=== PATIENT | male | born 1965 | race Caucasian/White ===

== ENCOUNTER → 2016-03-17 | Outpatient (CLI) | payer BC ==
[2016-03-17 10:13] LABS: FREE T4 0.72 NG/DL (0.76-1.46)
== END ==
LOC: M LAB 08:37
PROVIDERS: ATTEND Family Medicine Adult Medicine
DX: R53.82 Chronic fatigue, unspecified (principal)

== ENCOUNTER → 2016-05-10 | Outpatient (CLI) | payer BC ==
[2016-05-10 15:06] LABS: BASO # 0.1 K/mm3 (0.0-0.2); BASO % 0.9 % (0.0-1.0); EOS # 0.4 K/mm3 (0.0-0.50); EOS % 5.2 % (0.0-3.0); LARGE UNSTAINED CELL # 0.2 K/mm3 (0.0-0.4); LYMPH # 2.6 K/mm3 (1.5-4.5); LYMPH % 34.3 % (24.0-44.0); MEAN CORPUSCULAR HEMOGLOBIN 29.6 pg (27.0-33.0); MEAN CORPUSCULAR HGB CONC 34.5 g/dl (32.0-36.5); MEAN CORPUSCULAR VOLUME 85.9 fl (80.0-96.0); MONO # 0.5 K/mm3 (0.0-0.8); MONO % 6.5 % (0.0-5.0); NEUTROPHILS # 3.7 K/mm3 (1.8-7.7); NEUTROPHILS % 51.1 % (36.0-66.0); PLATELET COUNT, AUTOMATED 220 k/mm3 (150-450); RED CELL DISTRIBUTION WIDTH 12.6 % (11.5-14.5); WHITE BLOOD COUNT 7.2 K/mm3 (4.0-10.0)
[2016-05-10 15:40] LABS: ALBUMIN 3.8 GM/DL (3.2-5.2); ALKALINE PHOSPHATASE 80 U/L (45-117); ALT/SGPT 23 U/L (12-78); ANION GAP 6 MEQ/L (8-16); AST/SGOT 21 U/L (15-37); BILIRUBIN,TOTAL 0.6 MG/DL (0.2-1.0); BLOOD UREA NITROGEN 15 MG/DL (7-18); CALCIUM LEVEL 9.2 MG/DL (8.5-10.1); CARBON DIOXIDE LEVEL 29 MEQ/L (21-32); CHLORIDE LEVEL 105 MEQ/L (98-107); CHOLESTEROL LEVEL 233 MG/DL (<200); FREE T4 0.66 NG/DL (0.76-1.46); GLOMERULAR FILTRATION RATE > 60.0 (>60); GLUCOSE, FASTING 89 MG/DL (70-105); POTASSIUM SERUM 4.7 MEQ/L (3.5-5.1); SODIUM LEVEL 140 MEQ/L (136-145); TOTAL PROTEIN 7.6 GM/DL (6.4-8.2); TRIGLYCERIDES LEVEL 121 MG/DL (<150)
[2016-05-12 10:30] LABS: VITAMIN B12 LEVEL 489 PG/ML (247-911)
== END ==
LOC: M LAB 14:22
PROVIDERS: ATTEND Family Medicine Adult Medicine
DX: R53.81 Other malaise (principal); E55.9 Vitamin D deficiency, unspecified

== ENCOUNTER → 2016-05-13 | Outpatient (CLI) | payer BC ==
--- NOTE | 2016-05-13 18:40 | REP ---
Clinical: Pain. Technique: Real time rivers scale and color Doppler evaluation using linear high frequency transducer. Findings: The right testicle is normal in contour, size, echogenicity and vascularity without intratesticular mass lesion, infectious/inflammatory process, or torsion. The right epididymis has been replaced by innumerable large cysts which may reflect actual cysts and/or spermatoceles and measure up to approximately 15 mm diameter. No right hydrocele. The right testicle measures 3.7 x 1.7 x 2.2 cm. The left testicle is normal in size and vascularity but demonstrates diffuse heterogeneity without discrete focal mass lesion. No evidence for acute torsion, infectious/inflammatory process noted. The left epididymis appears normal. No left hydrocele. Left testicle measures 4.0 x 1.5 x 2.4 cm. Impression: 1. The right epididymis has been replaced by large cysts versus spermatoceles which measure up to 15 mm diameter. The right testicle is normal in appearance. 2. The left testicle appears heterogeneous without discrete lesion. This is a nonspecific finding and there are no prior examinations for comparison. While differential may include infiltrating lesion, findings may also be related to prior insult. The left epididymis is normal. Signed by Tahir Ruiz MD 05/13/2016 06:32 P
== END ==
LOC: M RAD 17:31
PROVIDERS: ATTEND Family Medicine Adult Medicine
DX: N50.819 Testicular pain, unspecified (principal); N50.3 Cyst of epididymis

== ENCOUNTER → 2016-08-20 | Outpatient (CLI) | payer BC ==
[~2016-08-20] MED LIST: ADVI200T PO; CIPR-249 PO; FLOM5CAP PO; PERC5TAB12 PO; REGL10TA6 PO; VITA200015 PO; ZYRT10TA2 PO
[2016-08-24 14:14] LABS: SEX HORMONE BINDING GLOBULIN 72.3 nmol/L (16.5-55.9); TESTOSTERONE %FREE+WEAKLY BOUN 9.7 % (9.0-46.0); TESTOSTERONE FREE+WEAKLY BOUND 55.5 ng/dL (40.0-250.0)
== END ==
LOC: M LAB 06:30
PROVIDERS: ATTEND Student in an Organized Health Care Education/Training Program
DX: N50.819 Testicular pain, unspecified (principal)

== ENCOUNTER 2016-12-08 09:54 | Emergency (ER) | payer BC ==
[~2016-12-08] VITALS: Ht 160 cm; Wt 94.5 kg
[2016-12-08] MEDS ORDERED: VITA200015 PO (10:10)
[2016-12-08] MEDS ORDERED: ADVI200T PO (10:10)
[2016-12-08] MEDS ORDERED: ZYRT10TA2 PO (10:10)
[2016-12-08] MEDS ORDERED: KETOROLAC 60 MG/2 ML VIAL (J1885) IM ONE (10:45)
--- NOTE | 2016-12-08 11:43 | REP ---
CT abdomen and pelvis without IV or oral contrast: Renal stone protocol. History: Left flank pain. Comparison study: April 10, 2010. CT findings: Digital preliminary drapery maker radiograph demonstrates an unremarkable bowel gas pattern. There is a levoconvex curve in the lumbar spine. The lung bases are clear on axial CT slices. There is a 2.1 cm fairly well circumscribed low density lesion in the posterior segment right lobe of the liver which may be a cyst or perhaps hemangioma. A smaller low density area is visible in this location in retrospect on the [address] study implying a benign lesion. There is mild diffuse fatty infiltration of the liver. No other focal liver lesion is seen. The spleen is unremarkable. No adrenal lesion is seen on either side. Gallbladder and pancreas are unremarkable. There are bilateral intrarenal calculi. There is a 2.5 mm intrarenal calculus in the midpole of the right kidney. A tiny 2 mm calculus is seen in the lower pole of the right kidney. No right-sided hydronephrosis is seen. There are two separate intrarenal calculi in the left kidney. In the mid pole there is a 3 mm calculus and in the lower pole intrarenal collecting system of the left kidney, there is a 4 mm intrarenal calculus. There is moderate left-sided hydronephrosis. There is mild periureteral stranding. The left ureter contains a obstructive 3 mm calculus in the mid ureteral segment at the level of the L4 vertebral body. No other ureteral calculus is seen. No bladder calculus is observed. Prostate, seminal vesicles and urinary bladder are unremarkable. Small and large intestinal bowel loops are unremarkable in the abdomen and pelvis. No abdominal wall defect is seen. A normal appendix is seen. There is lipomatous change of the spermatic cord on the right noted incidentally. No bony destructive lesion is seen. There are some degenerative spondylosis changes in the spine. Impression: 1. Moderate left-sided hydronephrosis due to a 3 mm left mid ureteral obstructing calculus. 2. There are intrarenal calculi bilaterally, two separate calculi seen in each kidney. 3. 2.0 cm low density lesion in the posterior segment of the right lobe of the liver consistent with cyst or hemangioma. This is larger than a small low density area seen in 2011 at this site. Signed by Yvan Gordon MD 12/08/2016 02:18 P
[2016-12-08] MEDS ORDERED: PERC5TAB12 PO ×2 (12:38→12:52)
[2016-12-08] MEDS ORDERED: FLOM5CAP PO ×2 (12:38→12:52)
[2016-12-08] MEDS ORDERED: CIPR-249 PO ×2 (12:38→12:52)
[2016-12-08 12:54] VITALS: BP 151/78
[2016-12-22] MEDS ORDERED: TYLE325T5 PO (08:22)
[2016-12-22] MEDS ORDERED: MULT1TAB10 PO (08:22)
[2016-12-22] MEDS ORDERED: VITA1CAP40 PO (08:22)
== END 2016-12-08 12:54 | disposition home or self-care (01) ==
LOC: M ED 09:54
DX: R10.9 Unspecified abdominal pain (principal)
CPT/HCPCS: 74176; 81001; 87086; 96372; 99283; J1885

== ENCOUNTER 2016-12-11 00:52 | Emergency (ER) | payer BC ==
[~2016-12-11] VITALS: Ht 160 cm; Wt 93.2 kg
[~2016-12-11 00:52] MED LIST changes: -REGL10TA6 PO
[2016-12-11 00:58] VITALS: BP 161/85
[2016-12-11] MEDS ORDERED: NS 1,000 ML IV ONE (01:30)
[2016-12-11] MEDS ORDERED: METOCLOPRAMIDE INJ 10MG/2ML VIAL (J2765) IV ONE (01:30)
[2016-12-11] MEDS ORDERED: REGL10TA6 PO (04:04)
[2016-12-22] MEDS ORDERED: TYLE325T5 PO (08:22)
[2016-12-22] MEDS ORDERED: VITA1CAP40 PO (08:22)
[2016-12-22] MEDS ORDERED: MULT1TAB10 PO (08:22)
== END 2016-12-11 04:15 | disposition home or self-care (01) ==
LOC: M ED 00:52
DX: R11.10 Vomiting, unspecified (principal)
CPT/HCPCS: 96374; 99283; J2765

== ENCOUNTER 2016-12-12 12:36 | Day surgery (SDC) | payer BC ==
[~2016-12-12] VITALS: Ht 167.6 cm; Wt 93.0 kg
[~2016-12-12 12:36] MED LIST changes: +REGL10TA6 PO
[2016-12-12] MEDS ORDERED: MORPHINE 4 MG/ML 1ML SYRINGE IV ONE (14:15)
[2016-12-12] MEDS ORDERED: NS 1,000 ML IV ONE (14:15)
[2016-12-12] MEDS ORDERED: ONDANSETRON 4MG/2ML VIAL (J2405) IV ONE (14:15)
[2016-12-12 15:30] LABS: BASO # 0.1 10^3/uL (0.0-0.2); BASO % 0.3 % (0.0-1.0); EOS # 0.1 10^3/uL (0.0-0.50); EOS % 0.4 % (0.0-3.0); IMMATURE GRANULOCYTE % 0.4 % (0-0); LYMPH # 0.9 10^3/uL (1.5-4.5); LYMPH % 5.5 % (24.0-44.0); MEAN CORPUSCULAR HGB CONC 34.9 g/dl (32.0-36.5); MONO # 1.1 10^3/uL (0.0-0.8); MONO % 6.6 % (0.0-5.0); NEUTROPHILS # 14.2 10^3/uL (1.8-7.7); NEUTROPHILS % 86.8 % (36.0-66.0); PLATELET COUNT, AUTOMATED 207 10^3/uL (150-450); RED CELL DISTRIBUTION WIDTH 12.2 % (11.5-14.5); WHITE BLOOD COUNT 16.4 10^3/uL (4.0-10.0)
[2016-12-12 15:51] LABS: ANION GAP 8 MEQ/L (8-16); BLOOD UREA NITROGEN 12 MG/DL (7-18); CALCIUM LEVEL 9.3 MG/DL (8.5-10.1); CARBON DIOXIDE LEVEL 26 MEQ/L (21-32); CHLORIDE LEVEL 104 MEQ/L (98-107); CREATININE FOR GFR 1.27 MG/DL (0.70-1.30); GLOMERULAR FILTRATION RATE > 60.0 (>60); GLUCOSE, FASTING 89 MG/DL (70-105); POTASSIUM SERUM 4.3 MEQ/L (3.5-5.1); SODIUM LEVEL 138 MEQ/L (136-145)
[2016-12-12] MEDS ORDERED: CONRAY-60 60% 50ML VIAL (Q9961) As Ordered ONE (17:32)
[2016-12-12] MEDS ORDERED: CIPROFLOXACIN/D5W 400 MG/200 ML BAG (J0744) As Ordered ONE (17:59)
[2016-12-12] MEDS ORDERED: PROPOFOL 200 MG/20 ML VIAL As Ordered ONE (18:11)
[2016-12-12] MEDS ORDERED: MIDAZOLAM INJ 2 MG/2 ML VIAL (J2250) As Ordered ONE (18:11)
[2016-12-12] MEDS ORDERED: fentaNYL 100 MCG/2 ML INJECTION (J3010) As Ordered ONE (18:11)
[2016-12-12] MEDS ORDERED: CIPROFLOXACIN/D5W 400 MG/200 ML BAG (J0744) IV ONE (18:24)
[2016-12-12] MEDS ORDERED: KETOROLAC 30 MG/ML VIAL (J1885) IV PRN (18:45)
[2016-12-12] MEDS ORDERED: LR 1,000 ML IV SCH ×2 (18:45)
[2016-12-12] MEDS ORDERED: fentaNYL 100 MCG/2 ML INJECTION (J3010) IV PRN (18:45)
[2016-12-12] MEDS ORDERED: ONDANSETRON 4MG/2ML VIAL (J2405) IV PRN ×2 (18:45)
[2016-12-12 19:15] VITALS: BP 145/82
[2016-12-12 19:45] VITALS: BP 133/73
[2016-12-12 20:45] VITALS: BP 139/77
[2016-12-12 21:45] VITALS: BP 142/79
[2016-12-12 22:45] VITALS: BP 139/86
--- NOTE | 2016-12-13 03:28 | CR ---
DATE OF CONSULTATION: 12/12/2016 This 51-year-old male was evaluated on consultation as requested by the emergency department at [facility] on 12/12/2016 for left renal colic. He presented 48 hours previously to said emergency department with the same condition, and was discharged home with Flomax and oral analgesia. He re-presents today with a persistent 48-hour history of left renal colic, nausea, and vomiting. Prior to presentation, there is no history of voiding symptoms, gross hematuria, urinary tract infection, stone passage or constitutional symptoms. He has a 22-year history of recurrent nephrolithiasis (spontaneous passage). PAST MEDICAL HISTORY: Significant for: 1. Bilateral orchiopexy. 2. Left varicose vein stripping. REVIEW OF SYSTEMS: Negative for diabetes, hypertension, cardiac or pulmonary pathology, thyroid problems, headaches, epilepsy, CVA, glaucoma, peptic ulcer disease, cholelithiasis, or blood-borne diseases. MEDICATIONS: He is on no medications. ALLERGIES: He has no allergies to medications. SOCIAL HISTORY: He is and has zero children. He is a nonsmoker who consumes alcohol occasionally. FAMILY HISTORY: Significant for diabetes mellitus and cerebrovascular accident on the paternal side, diabetes mellitus in a sibling, and lung cancer on the maternal side. PHYSICAL EXAMINATION: General examination revealed a comfortable individual. His heart rate was 85, respiratory rate 20, blood pressure was 150/86, and temperature was 98.3 degrees Fahrenheit. Palpation of head and neck failed to reveal the presence of lymphadenopathy. Auscultation chest was clear. Normal breath sounds. Examination of the back and abdomen was benign. Urinalysis (12/12/2016) demonstrated 3+ red blood cells with a pH of 6.0. Nitrites and leukocytes were negative. Serum hematologic and bowel chemical indices determination (12/12/2016) demonstrated a hemoglobin at 15.7, leukocyte count of 16.4 and a creatinine of 1.27. Computed tomography of the abdomen and pelvis without intravenous contrast (12/12/2016) demonstrated left moderate hydroureteronephrosis with a left distal ureter 4 mm calculus and bilateral, less than 4 mm, kidney calculi. ASSESSMENT: 1. Left distal ureter calculus. 2. Bilateral kidney calculi. 3. Left moderate hydroureteronephrosis. 4. History of bilateral orchiopexy. 5. History of left varicose vein stripping of the lower extremity. PLAN: The above findings were discussed with the patient and the nursing staff. Following nothing by mouth status (1030 hours), cystoscopy, left retrograde ureteropyelography and double J stent insertion will be performed. Following this procedure, the patient may be discharged home with instructions to strain his urine. Exit prescription (ciprofloxacin) will be provided. He will followup with urology at [facility] in 1 week with a KUB radiograph. The temporary nature of the double J stent was emphasized to the patient. Should you require additional information, please do not hesitate to contact me. Thanking you for the confidence of your referral.
--- NOTE | 2016-12-13 07:25 | REP ---
CT ABDOMEN AND PELVIS WITHOUT IV OR ORAL CONTRAST: HISTORY: Left flank pain. History of kidney stones. Comparison CT study December 08, 2016. This recent prior study was read as showing moderate left-sided hydronephrosis due to a 3 mm left mid ureteral stone. CT FINDINGS: Police Chief view shows an unremarkable bowel gas pattern. The lung bases remain clear. A low-density right hepatic lobe liver lesion is again seen unchanged. There is moderate left-sided hydronephrosis and mild left-sided hydroureter. The previously noted 3 mm calculus is seen in the distal ureter several centimeters above the ureterovesical junction. On today's CT images the calcification measures 4 mm in greatest diameter. No bladder calculus is seen. No other ureteral calculus is observed. There are two 3-4 mm intrarenal calculi remaining in the left kidney and there is one intrarenal calculus in the right kidney. No other abnormality. IMPRESSION: Mild to moderate left-sided hydronephrosis slightly more prominent. 4 mm calculus seen in the distal ureter several centimeters above the ureterovesical junction on the left side today. Two intrarenal calculi remain in the left kidney and there is one intrarenal calculus in the right kidney. No right-sided hydronephrosis seen. Signed by Yvan Gordon MD 12/13/2016 09:19 A
--- NOTE | 2016-12-13 07:27 | REP ---
RETROGRADE URETEROGRAM: Six views. HISTORY: Left ureteral stent. 15 seconds of fluoroscopy time is reported. FINDINGS: A sequence of six last image hold fluoroscopic spot radiographs of the abdomen document left ureteral cannulation, contrast injection, and double pigtail ureteral stent placement. Signed by Yvan Gordon MD 12/13/2016 09:19 A
--- NOTE | 2016-12-13 13:43 | RO ---
DATE OF PROCEDURE: 12/12/2016 PREPROCEDURE DIAGNOSES: 1. Distal ureteral calculus. 2. Bilateral kidney calculi. POSTPROCEDURE DIAGNOSES: 1. Distal ureteral calculus. 2. Bilateral kidney calculi. 3. Left pyuria. PROCEDURE: Cystoscopy, left retrograde ureteropyelography, #6-Malagasy Prescott JJ stent insertion, fluoroscopy. COMPLICATIONS: None. SURGEON: Aniceto Bonilla MD SENIOR UX DEVELOPER: ANESTHESIA: MAC. ESTIMATED BLOOD LOSS: 0 mL. PROCEDURE: In the lithotomy position, the patient was prepped and draped in the usual fashion. Plain fluoroscopy of the upper urinary tract failed to confirm the presence of a radiopaque calculus. A #21-Malagasy rigid Olympus cystoscope was advanced into the urinary bladder under direct vision. A urine specimen for culture and sensitivity was obtained. Pancystoscopy revealed normal ureteral orifices bilaterally and normal urothelium. There was no evidence of tumor, active bleeding or urolithiasis. A bilobe prostate was present. The urethral was normal. A #5-Malagasy open ended ureteral catheter was used to intubate the left ureteric orifice. Following intubation of the left ureteric orifice, pyuria was noted to drain from the #5-Malagasy open ended ureteral catheter. This urine was collected and sent for culture and sensitivity (separate second specimen). Gentle retrograde ureteropyelograph confirming normal caliber ureter and mild hydronephrosis. A distal ureter filling defect was noted. The retrograde was performed gently to minimize the risk of pyelovenous backflow. Under fluoroscopy, a 0.035 Glidewire was advanced up into the left renal pelvis under fluoroscopy. The #5-Malagasy open ended ureteral catheter was removed and a #6-Malagasy Prescott JJ stent was advanced up into the left renal pelvis under fluoroscopy and direct vision. Its position was confirmed. Prior to removal of the instruments, the bladder was drained. At the conclusion of the procedure, sponge and instrument counts were correct. Estimated blood loss for the procedure was 0 mL. In the recovery room, the patient was alert and stable. DISPOSITION: Discharge home. Exit prescription ( ciprofloxacin) provided. KUB radiograph in the office with urology at [facility] in 1 week. The temporary nature of the JJ stent was emphasized to the patient's spouse (Radha Armstrong).
[2016-12-22] MEDS ORDERED: MULT1TAB10 PO (08:22)
[2016-12-22] MEDS ORDERED: VITA1CAP40 PO (08:22)
[2016-12-22] MEDS ORDERED: TYLE325T5 PO (08:22)
== END 2016-12-12 22:45 | disposition home or self-care (01) ==
LOC: M ED 12:36 → M OROP 17:35 → M PED 22:18 → M OROP 22:45
PROVIDERS: ATTEND Urology
DX: N20.2 Calculus of kidney with calculus of ureter (principal); N39.0 Urinary tract infection, site not specified; N13.30 Unspecified hydronephrosis
CPT/HCPCS: 52332; 74176; 74420; 80048; 81001; 85025; 87086; 96365; 96374; 96375; 99284; C1769; C2617; J0744; J2250; J2405; J3010; Q9961

== ENCOUNTER 2016-12-27 05:56 | Day surgery (SDC) | payer BC ==
[~2016-12-27] VITALS: Ht 160 cm; Wt 91.2 kg
[~2016-12-27 05:56] MED LIST changes: +MULT1TAB10 PO; +TYLE325T5 PO; +VITA1CAP40 PO
[2016-12-27] MEDS ORDERED: LR 1,000 ML IV SCH ×2 (06:15→09:00)
[2016-12-27] MEDS ORDERED: PROPOFOL 200 MG/20 ML VIAL As Ordered ONE (07:43)
[2016-12-27] MEDS ORDERED: LIDOCAINE 2% INJ 100 MG/5 ML SDV (FOR ANES.) As Ordered ONE (07:43)
[2016-12-27] MEDS ORDERED: MIDAZOLAM INJ 2 MG/2 ML VIAL (J2250) As Ordered ONE (07:43)
[2016-12-27] MEDS ORDERED: fentaNYL 100 MCG/2 ML INJECTION (J3010) As Ordered ONE ×2 (07:43→07:56)
[2016-12-27] MEDS ORDERED: METOCLOPRAMIDE INJ 10MG/2ML VIAL (J2765) As Ordered ONE (07:44)
[2016-12-27] MEDS ORDERED: ONDANSETRON 4MG/2ML VIAL (J2405) As Ordered ONE (07:44)
--- NOTE | 2016-12-27 08:39 | REP ---
Clinical: Obstructive left ureteral stone. Technique: Retrograde pyelogram with intraoperative fluoroscopic imaging. Findings: Multiple intraoperative fluoroscopic images demonstrate mild left-sided hydroureter nephrosis with subsequently placed left ureteral stent in satisfactory position. Total fluoroscopic time 35 seconds. Impression: Mild left hydroureteronephrosis. Left ureteral stent in satisfactory position. Signed by Tahir Ruiz MD 12/27/2016 08:30 A
[2016-12-27] MEDS ORDERED: PERCOCET 5MG/325MG TAB PO PRN (09:00)
[2016-12-27] MEDS ORDERED: METOCLOPRAMIDE INJ 10MG/2ML VIAL (J2765) IV PRN (09:00)
[2016-12-27] MEDS ORDERED: ONDANSETRON 4MG/2ML VIAL (J2405) IV PRN (09:00)
[2016-12-27] MEDS ORDERED: NORCO, ANEXSIA 5/325MG TABLET (HYDROcodone/ACETAMINOPHEN) PO PRN ×2 (09:00)
[2016-12-27] MEDS ORDERED: MEPERIDINE INJ 25 MG/ML VIAL (J2175) IV PRN (09:00)
[2016-12-27] MEDS ORDERED: fentaNYL 100 MCG/2 ML INJECTION (J3010) IV PRN (09:00)
--- NOTE | 2016-12-27 09:09 | RO ---
DATE OF PROCEDURE: 12/27/2016 PREPROCEDURE DIAGNOSIS: Left kidney and ureteral stones. POSTPROCEDURE DIAGNOSIS: Left kidney and ureteral stones. PROCEDURE: Cystoscopy, left ureteroscopy with basket extraction of stones, left retrograde pyelogram with intraoperative interpretation of images, left ureteral stent exchange. SURGEON: Dr. Hudson Rebollar AUTOMOBILES SALESPERSON: None. ANESTHESIA: General. OPERATIVE INDICATIONS: This is a 51-year-old male who presented to the hospital two weeks ago for an obstructing 5 mm distal left ureteral stone. With CAT scan he was also noted to have two non obstructing 4 mm left kidney stones. He had a left ureteral stent placed at that time. He was brought to the operating room today for removal of the stones. DESCRIPTION OF PROCEDURE: The patient was brought to the operating room where general anesthesia was induced. Prophylactic antibiotics were infused. He was then placed in dorsal lithotomy position and prepped and draped in the usual sterile fashion. A rigid cystoscope was then inserted into the urethral meatus and advanced to the bladder. Once within the bladder, a previously placed stent was seen. The stent was then withdrawn until the distal end was seen protruding from the urethral meatus. I then advanced a guidewire up the left collecting system through the stent. The stent was then removed leaving the wire in place. The wire was then secured to the drape to serve as a safety wire. I then went up the left collecting system with a short semirigid ureteroscope and within the distal left ureter the 5 mm stone was seen. The stone was then grasped with a basket and withdrawn. At this point, the wire was utilized to advance a ureteral access sheath up into the left collecting system. I then went up the access sheath with a flexible ureteroscope and within the left kidney the two 4 mm stones were seen. Both stones were removed with a basket. I examined the remainder of the kidney and the only other stones were seen were all less than 2 mm in size. At this point, a retrograde pyelogram was performed and it was notable for mild to moderate left hydronephrosis with no extravastion. I then withdrew the ureteral access sheath along with the ureteroscope and no additional stones were seen within the ureter. I then utilized the previously placed wire to advance a 6 Persian x 22-32 cm JJ ureteral stent up into the left collecting system. The wire was then removed and there were adequate curls of the stent in the left renal pelvis and in the bladder. The bladder was then emptied of all fluid and this marked the conclusion of the procedure. The patient was then taken out of the dorsal lithotomy position, awakened from anesthesia and transported to the recovery room in stable condition. Estimated blood loss: 0 mL. Complications: None. Specimen: Kidney stones. Plan: The patient will follow up in the clinic in a few weeks for stent removal. BRENDA
[2016-12-27] MEDS ORDERED: CONRAY-60 60% 50ML VIAL (Q9961) As Ordered ONE (10:03)
[2016-12-27] MEDS ORDERED: oxyBUTYnin 5 MG TAB PO ONE (10:30)
[2016-12-27 11:00] VITALS: BP 148/85
== END 2016-12-27 11:06 | disposition home or self-care (01) ==
LOC: M SDC 05:56
PROVIDERS: ATTEND Urology
DX: N20.2 Calculus of kidney with calculus of ureter (principal); E29.1 Testicular hypofunction; I10 Essential (primary) hypertension; E78.00 Pure hypercholesterolemia, unspecified; R06.83 Snoring; N50.89 Other specified disorders of the male genital organs
CPT/HCPCS: 52332; 52352; 74420; 82360; 88300; C1769; C1894; C2617; J0690; J2250; J2405; J2765; J3010; Q9961

== ENCOUNTER → 2017-05-04 | Outpatient (CLI) | payer BC ==
[2017-05-04 15:00] LABS: TOTAL 25(OH) VITAMIN D 51.1 NG/ML (30.0-100.0)
[2017-05-04 15:01] LABS: VITAMIN B12 LEVEL 1012 PG/ML (247-911)
[2017-05-04 15:11] LABS: HEPATITIS B SURFACE ANTIGEN NEGATIVE (NEGATIVE)
[2017-05-04 15:38] LABS: HEPATITIS C VIRUS ABY INDEX 0.1 INDEX (<0.8)
[2017-05-04 15:38] LABS: HEPATITIS B CORE ANTIBODY IGM NEGATIVE (NEGATIVE)
[2017-05-04 15:41] LABS: HEPATITIS A ANTIBODY IGM NEGATIVE (NEGATIVE)
== END ==
LOC: M LAB 13:49
DX: R53.81 Other malaise (principal); E55.9 Vitamin D deficiency, unspecified
CPT/HCPCS: 82607

== ENCOUNTER → 2017-09-15 | Outpatient (CLI) | payer BC ==
[2017-09-15 17:09] LABS: PSA SCREENING 3.89 NG/ML (< 4.0)
== END ==
LOC: M LAB 15:16
DX: R39.12 Poor urinary stream (principal); R22.42 Localized swelling, mass and lump, left lower limb
CPT/HCPCS: G0103

== ENCOUNTER → 2019-12-04 | Outpatient (CLI) | payer BC ==
[~2019-12-04] MED LIST changes: +FLOM0.4C39 PO; -FLOM5CAP PO; -VITA1CAP40 PO; +VITA50005 PO; +ZYRT10CA5 PO; -ZYRT10TA2 PO
[2019-12-04 13:58] LABS: HEMATOCRIT 46.6 % (42.0-52.0); HEMOGLOBIN 15.7 g/dl (13.5-17.5); MEAN CORPUSCULAR HEMOGLOBIN 28.8 pg (27.0-33.0); MEAN CORPUSCULAR HGB CONC 33.7 g/dl (32.0-36.5); MEAN CORPUSCULAR VOLUME 85.5 fl (80.0-96.0); PLATELET COUNT, AUTOMATED 204 10^3/uL (150-450); RED BLOOD COUNT 5.45 10^6/uL (4.30-6.10)
[2019-12-04 14:36] LABS: ALBUMIN 3.7 GM/DL (3.2-5.2); ALT/SGPT 35 U/L (12-78); BILIRUBIN,TOTAL 0.4 MG/DL (0.2-1.0); BLOOD UREA NITROGEN 14 MG/DL (7-18); CALCIUM LEVEL 9.2 MG/DL (8.5-10.1); CARBON DIOXIDE LEVEL 28 MEQ/L (21-32); CHLORIDE LEVEL 106 MEQ/L (98-107); CHOLESTEROL LEVEL 248 MG/DL (<200); CHOLESTEROL RISK RATIO 5.166 (<5); CREATININE FOR GFR 0.84 MG/DL (0.70-1.30); GLOMERULAR FILTRATION RATE > 60.0 (>56); GLUCOSE, FASTING 89 MG/DL (70-100); HDL CHOLESTEROL 48 MG/DL (>40); LDL CHOLESTEROL 177 MG/DL (<100); NON-HDL-C 200 MG/DL; POTASSIUM SERUM 4.5 MEQ/L (3.5-5.1); PROSTATIC SPECIFIC AG MONITOR 3.79 NG/ML (< 4.00); SODIUM LEVEL 140 MEQ/L (136-145); THYROXINE (T4) 1.5 UG/DL (4.5-12.0); TOTAL PROTEIN 7.2 GM/DL (6.4-8.2); TRIGLYCERIDES LEVEL 117 MG/DL (<150)
[2019-12-04 14:38] LABS: TOTAL 25(OH) VITAMIN D 80.8 NG/ML (30.0-100.0)
[2019-12-04 14:39] LABS: VITAMIN B12 LEVEL 673 PG/ML (247-911)
== END ==
LOC: M LAB 13:01
PROVIDERS: ATTEND Specialist
DX: R53.83 Other fatigue (principal); M25.50 Pain in unspecified joint; Z12.5 Encounter for screening for malignant neoplasm of prostate; E55.9 Vitamin D deficiency, unspecified; E29.1 Testicular hypofunction

== ENCOUNTER → 2024-06-04 | Outpatient (CLI) | payer BC | LOC: M RAD 09:39 | PROVIDERS: ATTEND Nurse Practitioner Family | DX: Z87.442 Personal history of urinary calculi (principal) ==

== ENCOUNTER → 2024-06-04 | Outpatient (CLI) | payer BC ==
[2024-06-04 10:15] LABS: BASO # 0.1 10^3/uL (0.0-0.2); BASO % 1.2 % (0.0-1.0); EOS # 0.4 10^3/uL (0.0-0.5); EOS % 6.1 % (0.0-3.0); HEMATOCRIT 44.7 % (42.0-52.0); HEMOGLOBIN 15.5 g/dl (13.5-17.5); LYMPH # 2.3 10^3/uL (1.5-5.0); LYMPH % 31.9 % (24.0-44.0); MEAN CORPUSCULAR HGB CONC 34.7 g/dl (32.0-36.5); MEAN CORPUSCULAR VOLUME 83.7 fl (80.0-96.0); MONO # 0.5 10^3/uL (0.0-0.8); MONO % 7.4 % (2.0-8.0); NEUTROPHILS # 3.8 10^3/uL (1.5-8.5); PLATELET COUNT, AUTOMATED 204 10^3/uL (150-450); RED BLOOD COUNT 5.34 10^6/uL (4.30-6.10); WHITE BLOOD COUNT 7.3 10^3/uL (4.0-10.0)
[2024-06-04 10:34] LABS: HEMOGLOBIN A1c 5.2 % (4.0-6.0)
[2024-06-04 10:43] LABS: ALBUMIN 3.5 G/DL (3.2-5.2); ALKALINE PHOSPHATASE 67 U/L (40-129); ALT/SGPT 39 U/L (7.0-40); AST/SGOT 29 U/L (<34); BILIRUBIN,TOTAL 0.6 MG/DL (0.3-1.2); BLOOD UREA NITROGEN 11 MG/DL (9-23); CARBON DIOXIDE LEVEL 26 MMOL/L (20-31); CHLORIDE LEVEL 105 MMOL/L (98-107); CHOLESTEROL LEVEL 200 MG/DL (<200); CHOLESTEROL RISK RATIO 4.61 (<5); CREATININE FOR GFR 0.76 MG/DL (0.70-1.30); GLOMERULAR FILTRATION RATE > 90.0 (>56); GLUCOSE, FASTING 102 MG/DL (60-100); HDL CHOLESTEROL 43.3 MG/DL (>40); LDL CHOLESTEROL 126.9 MG/DL (<100); NON-HDL-C 156.7 MG/DL; POTASSIUM SERUM 4.2 MMOL/L (3.5-5.1); SODIUM LEVEL 140 MMOL/L (136-145); TRIGLYCERIDES LEVEL 149 MG/DL (<150)
[2024-06-04 10:45] LABS: FREE T4 1.71 NG/DL (0.89-1.76); THYROID STIMULATING HORMONE 1.772 uIU/ML (0.55-4.78)
== END ==
LOC: M LAB 09:41
PROVIDERS: ATTEND Registered Nurse
DX: Z00.00 Encounter for general adult medical examination without abnormal findings (principal)

== ENCOUNTER → 2024-06-18 | Outpatient (CLI) | payer BC ==
[~2024-06-18] MED LIST changes: -FLOM0.4C39 PO; +TAMS-18 PO
== END ==
LOC: M LAB 13:28
PROVIDERS: ATTEND Nurse Practitioner Family
DX: R97.20 Elevated prostate specific antigen [PSA] (principal)

== ENCOUNTER → 2024-07-04 | Outpatient (CLI) | payer BC ==
[2024-07-04 16:36] LABS: HEMATOCRIT 41.4 % (42.0-52.0); HEMOGLOBIN 14.6 g/dl (13.5-17.5); MEAN CORPUSCULAR HEMOGLOBIN 29.4 pg (27.0-33.0); MEAN CORPUSCULAR HGB CONC 35.3 g/dl (32.0-36.5); MEAN CORPUSCULAR VOLUME 83.5 fl (80.0-96.0); PLATELET COUNT, AUTOMATED 189 10^3/uL (150-450); RED BLOOD COUNT 4.96 10^6/uL (4.30-6.10); WHITE BLOOD COUNT 7.8 10^3/uL (4.0-10.0)
[2024-07-04 16:37] LABS: APPEARANCE, URINE CLEAR (CLEAR); BACTERIA, URINE AUTO NEGATIVE (NEGATIVE); BILIRUBIN, URINE AUTO NEGATIVE (NEGATIVE); BLOOD, URINE BLOOD NEGATIVE (NEGATIVE); COLOR, URINE STRAW (YELLOW); GLUCOSE, URINE (UA) AUTO NEGATIVE (NEGATIVE); KETONE, URINE AUTO NEGATIVE (NEGATIVE); LEUKOCYTE ESTERASE, URINE AUTO NEGATIVE (NEGATIVE); MUCUS, URINE SMALL (NEGATIVE); NITRITE, URINE AUTO NEGATIVE (NEGATIVE); PROTEIN, URINE AUTO NEGATIVE (NEGATIVE); RBC, URINE AUTO 0 /HPF (0-3); SPECIFIC GRAVITY URINE AUTO 1.005 (1.002-1.035); SQUAMOUS EPITHELIAL CELL UR AU 0 /HPF (0-6); UROBILINOGEN, URINE AUTO 0.2 mg/dL (0.0-2.0); WBC, URINE AUTO 1 /HPF (0-3)
[2024-07-04 17:06] LABS: BLOOD UREA NITROGEN 15 MG/DL (9-23); CALCIUM LEVEL 9.1 MG/DL (8.5-10.1); CARBON DIOXIDE LEVEL 27 MMOL/L (20-31); CHLORIDE LEVEL 104 MMOL/L (98-107); CREATININE FOR GFR 0.64 MG/DL (0.70-1.30); GLOMERULAR FILTRATION RATE > 90.0 (>56); GLUCOSE, FASTING 92 MG/DL (60-100); POTASSIUM SERUM 4.2 MMOL/L (3.5-5.1); SODIUM LEVEL 139 MMOL/L (136-145)
== END ==
LOC: M RAD 15:55
PROVIDERS: ATTEND Nurse Practitioner Family
DX: Z01.818 Encounter for other preprocedural examination (principal)

== ENCOUNTER → 2024-08-27 | Outpatient (CLI) | payer BC ==
[~2024-08-27] MED LIST changes: +AZEL0.05; +CETI-24 PO; +OXYC1TAB23 PO; +TAMS1CAP17 PO; +THERTAB52 PO; +VITA-199 PO
== END ==
LOC: M RAD 09:13
PROVIDERS: ATTEND Urology
DX: N20.0 Calculus of kidney (principal)

== ENCOUNTER → 2024-08-27 | Outpatient (CLI) | payer BC ==
[2024-08-27 10:25] LABS: PLATELET COUNT, AUTOMATED 175 10^3/uL (150-450)
[2024-08-27 10:49] LABS: PROSTATIC SPECIFIC AG MONITOR 3.39 NG/ML (< 4.00)
[2024-08-27 10:52] LABS: FREE T4 1.61 NG/DL (0.89-1.76)
[2024-08-27 10:55] LABS: THYROXINE (T4) 1.3 UG/DL (4.5-10.9)
[2024-08-27 10:56] LABS: ESTRADIOL 31.2 PG/ML (<39.8)
[2024-08-27 11:01] LABS: THYROID PEROXIDASE ANTIBODY < 28.0 U/ML (<60.0)
[2024-08-28 21:27] LABS: C-PEPTIDE 3.98 ng/mL (0.80-3.85); SEX HORMONE BINDING GLOBULIN 49.0 nmol/L (22-77)
[2024-08-31 23:08] LABS: TESTOSTERONE FREE (DIRECT) 50.1 pg/mL (35.0-155.0); TESTOSTERONE TOTAL FOR T&D 501.0 ng/dL (250-1100)
== END ==
LOC: M LAB 09:11
PROVIDERS: ATTEND Specialist
DX: N53.9 Unspecified male sexual dysfunction (principal); M25.50 Pain in unspecified joint; R63.5 Abnormal weight gain; R53.83 Other fatigue

== ENCOUNTER → 2025-02-08 | Outpatient (CLI) | payer BC | LOC: M RAD 14:12 | PROVIDERS: ATTEND Physician Assistant | DX: K59.00 Constipation, unspecified (principal) ==